=== PATIENT | female | born 1985 | race African-American/Black ===

== ENCOUNTER 2019-06-19 21:46 | Emergency (ER) | payer MEDICAID ==
[~2019-06-19] VITALS: Ht 154.9 cm; Wt 84.0 kg
[2019-06-19 21:52] VITALS: BP 130/74
== END 2019-06-20 04:15 | disposition left against medical advice (07) ==
LOC: ER 21:46
DX: R07.89 Other chest pain (principal); Z53.21 Procedure and treatment not carried out due to patient leaving prior to being seen by health care provider
CPT/HCPCS: 93005

== ENCOUNTER 2020-03-07 03:15 | Emergency (ER) | payer MEDICAID ==
[~2020-03-07] VITALS: Ht 154.9 cm; Wt 86.0 kg
[2020-03-07] MEDS ORDERED: ONDANSETRON HCL 4MG/2ML INJ IV STA (03:55)
[2020-03-07] MEDS ORDERED: SODIUM CHLORIDE 0.9% 1,000 ML IV ONE (03:55)
[2020-03-07] MEDS ORDERED: MORPHINE SULFATE 4 MG/ML CPJ (NOT FOR IM USE) IV STA (03:55)
[2020-03-07 04:17] LABS: BASOPHILS % 0.5 % (0.0-2.0); EOSINOPHILS % 2.6 % (0.0-5.0); HEMATOCRIT. 37.4 % (36.0-48.0); HEMOGLOBIN. 12.8 g/dL (12.0-16.0); LYMPHOCYTES % 29.7 % (20.0-50.0); MEAN CORPUSCULAR HEMOGLOBIN 28.9 pg (28.0-32.0); MEAN CORPUSCULAR VOLUME 84.6 fL (81.0-99.0); MEAN PLATELET VOLUME 9.2 fl (7.4-10.4); MONOCYTES % 11.5 % (2.0-8.0); NEUTROPHILS % 55.7 % (40.0-76.0); PLATELET 240 x1000/uL (130-400); RED BLOOD CELL COUNT 4.42 mill/uL (4.2-5.4); RED CELL DISTRIBUTION WIDTH 13.2 % (11.6-14.6)
[2020-03-07 04:20] LABS: CLARITY URINE CLEAR (CLEAR); COLOR URINE YELLOW (YELLOW); KETONES URINE NEGATIVE (NEGATIVE); LEUKOCYTE ESTERASE URINE NEGATIVE (NEGATIVE); NITRITE URINE NEGATIVE (NEGATIVE); OCCULT BLOOD URINE NEGATIVE (NEGATIVE); PH URINE 5.5 (4.5-8.0); PROTEIN URINE NEGATIVE (NEGATIVE); SPECIFIC GRAVITY URINE 1.007 (1.005-1.030); UROBILINOGEN URINE 0.2 E.U./dL (0.2-1.0)
[2020-03-07 04:25] LABS: CHLORIDE 105 mEq/L (98-107)
[2020-03-07] MEDS ORDERED: CEFOTAXIME SODIUM 500MG/VIAL IV ONE (05:45)
[2020-03-07] MEDS ORDERED: CEFTRIAXONE 1GM PREMIX 50ML IV NR (06:00)
[2020-03-07] MEDS ORDERED: MORPHINE SULFATE 4 MG/ML CPJ (NOT FOR IM USE) IV ONE (06:15)
[2020-03-07 08:23] VITALS: BP 95/60
== END 2020-03-07 09:32 | disposition short-term general hospital (02) ==
LOC: ER 03:15
DX: K80.20 Calculus of gallbladder without cholecystitis without obstruction (principal)
CPT/HCPCS: 36415; 74176; 76700; 80053; 81003; 81025; 83690; 85025; 93005; 96365; 96375; 99285; J0696; J2270; J2405; J7030; J0698